=== PATIENT | male | born 1975 | race Two or more races ===

== ENCOUNTER 2022-01-03 11:24 | Emergency (ER) | payer OTHER ==
[~2022-01-03] VITALS: Ht 188 cm; Wt 81.6 kg
--- NOTE | 2022-01-03 11:35 | NUR ---
MARCOS [id number] From "[facility] Abdominal pain/Alcohol abuse". PLACED ON BED, AAOX4, IN PAIN 03/22.
--- NOTE | 2022-01-03 11:39 | NUR ---
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
[2022-01-03 11:47] LABS: BASOPHILS % (AUTO) 0.5 % (0.0-2.0); EOSINOPHILS % (AUTO) 0.9 % (0.0-6.0); HEMATOCRIT 40 % (39-51); HEMOGLOBIN 13.4 g/dL (13.5-17.5); LYMPHOCYTES # (AUTO) 1.6 K/uL (0.8-4.8); LYMPHOCYTES % (AUTO) 31.1 % (20.0-44.0); MEAN CORPUSCULAR HGB CONC 34 g/dl (31.0-36.0); MEAN CORPUSCULAR VOLUME 95 fL (80-96); MONOCYTES # (AUTO) 0.8 K/uL (0.1-1.30); MONOCYTES % (AUTO) 14.8 % (2.0-12.0); NEUTROPHILS # (AUTO) 2.7 K/uL (1.8-8.9); NEUTROPHILS % (AUTO) 52.7 % (43.0-81.0); PLATELET COUNT (AUTO) 196 K/uL (150-450); WHITE BLOOD COUNT (AUTO) 5.1 K/uL (4.3-11.0)
[2022-01-03 11:55] LABS: CALCIUM, SERUM 7.9 mg/dL (8.5-10.1); CREATININE 0.7 mg/dL (0.6-1.3); POTASSIUM 3.5 mmol/L (3.5-5.1)
[2022-01-03 12:01] LABS: ALBUMIN 3.5 g/dL (3.4-5.0); BILIRUBIN,DIRECT 0.1 mg/dL (0.0-0.2); BILIRUBIN,TOTAL 0.2 mg/dL (0.2-1.0); TOTAL PROTEIN, SERUM 7.1 g/dL (6.4-8.2)
--- NOTE | 2022-01-03 12:28 | NUR ---
SWAB FOR COVID19 SENT TO LAB
--- NOTE | 2022-01-03 13:28 | NUR ---
covid positive result relayed by labor economist, made aware
--- NOTE | 2022-01-03 13:35 | NUR ---
Patient discharged to home in stable condition. Written and verbal after care instructions given. Patient verbalizes understanding of instruction.
[2022-01-03 13:36] VITALS: BP 125/70
== END 2022-01-03 13:34 | disposition home or self-care (01) ==
LOC: ER 11:26
DX: F10.129 Alcohol abuse with intoxication, unspecified (principal); U07.1 COVID-19; R10.9 Unspecified abdominal pain; Z59.01 Sheltered homelessness
CPT/HCPCS: 99283; 87426; 85025; 80048; 83690; 80076; 36415; C9803

== ENCOUNTER 2022-01-12 23:01 | Emergency (ER) | payer OTHER ==
[~2022-01-12] VITALS: Ht 177.8 cm; Wt 77.1 kg
--- NOTE | 2022-01-12 23:26 | NUR ---
URINE COLLECTED AND SENT TO LAB
--- NOTE | 2022-01-12 23:34 | NUR ---
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
--- NOTE | 2022-01-12 23:39 | NUR ---
COVID SWAB COLLECTED AND SENT TO LAB
[2022-01-12 23:43] LABS: BASOPHILS % (AUTO) 0.3 % (0.0-2.0); EOSINOPHILS % (AUTO) 3.4 % (0.0-6.0); HEMATOCRIT 41 % (39-51); HEMOGLOBIN 13.5 g/dL (13.5-17.5); LYMPHOCYTES # (AUTO) 1.6 K/uL (0.8-4.8); LYMPHOCYTES % (AUTO) 44.6 % (20.0-44.0); MEAN CORPUSCULAR HGB CONC 33 g/dl (31.0-36.0); MEAN CORPUSCULAR VOLUME 95 fL (80-96); MONOCYTES # (AUTO) 0.3 K/uL (0.1-1.30); MONOCYTES % (AUTO) 8.6 % (2.0-12.0); NEUTROPHILS # (AUTO) 1.6 K/uL (1.8-8.9); NEUTROPHILS % (AUTO) 43.1 % (43.0-81.0); PLATELET COUNT (AUTO) 210 K/uL (150-450); RED BLOOD CELL COUNT(AUTO) 4.32 MIL/uL (4.5-6.0); WHITE BLOOD COUNT (AUTO) 3.7 K/uL (4.3-11.0)
[2022-01-12 23:46] LABS: BILIRUBIN,URINE NEGATIVE (NEGATIVE); COLOR,URINE YELLOW (YELLOW); LEUKOCYTE ESTERASE ,URINE NEGATIVE (NEGATIVE); NITRITE, URINE NEGATIVE (NEGATIVE); PH,URINE 5.5 (5.0-8.0); PROTEIN,URINE TRACE mg/dl (NEGATIVE); UGLUCOSE >=1000 mg/dL (NEGATIVE); UROBILINOGEN,URINE 0.2 EU/dL (0.2)
[2022-01-13] VITALS: BP 111/69
[2022-01-13 00:05] LABS: CALCIUM, SERUM 8.3 mg/dL (8.5-10.1); POTASSIUM 3.2 mmol/L (3.5-5.1)
[2022-01-13 00:07] LABS: BACTERIA,URINE Many /HPF (None Seen); SQUAMOUS EPITHELIAL CELL,UR Rare /HPF (None Seen); WBC,URINE 0-2 /HPF (0-3)
[2022-01-13 00:08] LABS: URIC ACID CRYSTALS,URINE Many /HPF (None Seen); URINE AMORPHOUS URATE Many /HPF (None Seen)
[2022-01-13 00:12] LABS: ALBUMIN 3.6 g/dL (3.4-5.0); BILIRUBIN,DIRECT 0.1 mg/dL (0.0-0.2); BILIRUBIN,TOTAL 0.3 mg/dL (0.2-1.0); TOTAL PROTEIN, SERUM 7.2 g/dL (6.4-8.2)
--- NOTE | 2022-01-13 06:50 | NUR ---
PT ELOPED FROM ER. DR UGARTE NOTIFIED. SITTER ATTEMPTED TO STOP PATIENT BUT PATIENT RAN AND EXITED THROUGH FIRE EXIT.
== END 2022-01-13 06:55 | disposition left against medical advice (07) ==
LOC: ER 23:04
DX: T40.2X1A Poisoning by other opioids, accidental (unintentional), initial encounter (principal); T51.0X1A Toxic effect of ethanol, accidental (unintentional), initial encounter; F19.10 Other psychoactive substance abuse, uncomplicated; Y92.89 Other specified places as the place of occurrence of the external cause; R94.31 Abnormal electrocardiogram [ECG] [EKG]; Z53.20 Procedure and treatment not carried out because of patient's decision for unspecified reasons; Z20.822 Contact with and (suspected) exposure to COVID-19; I10 Essential (primary) hypertension
CPT/HCPCS: 99284; 93005; 85025; 80048; 87086; 80076; 81001; 36415; 87426; 80143; 80320; 80307; C9803; G0480

== ENCOUNTER 2023-05-01 07:35 | Emergency (ER) | payer OTHER ==
[~2023-05-01] VITALS: Ht 188 cm; Wt 90.7 kg
[2023-05-01] MEDS ORDERED: ONDANSETRON HCL/PF 4 MG/2 ML VIAL ONE (08:25)
[2023-05-01] MEDS ORDERED: MORPHINE SULFATE INJ 4 MG/ML DISP.SYRIN ONE (08:25)
[2023-05-01 08:26] LABS: BASOPHILS % (AUTO) 0.7 % (0.0-2.0); EOSINOPHILS # (AUTO) 0.1 K/uL (0.0-0.7); HEMATOCRIT 38 % (39-51); HEMOGLOBIN 12.5 g/dL (13.5-17.5); LYMPHOCYTES # (AUTO) 0.7 K/uL (0.8-4.8); LYMPHOCYTES % (AUTO) 23.4 % (20.0-44.0); MEAN CORPUSCULAR HEMOGLOBIN 31 PG (26.0-33.0); MEAN CORPUSCULAR HGB CONC 33 g/dl (31.0-36.0); MEAN CORPUSCULAR VOLUME 93 fL (80-96); MONOCYTES # (AUTO) 0.3 K/uL (0.1-1.30); MONOCYTES % (AUTO) 10.9 % (2.0-12.0); NEUTROPHILS # (AUTO) 1.7 K/uL (1.8-8.9); PLATELET COUNT (AUTO) 197 K/uL (150-450); RED BLOOD CELL COUNT(AUTO) 4.08 MIL/uL (4.5-6.0); RED CELL DISTRIBUTION WIDTH 14.2 % (11.5-15.0); WHITE BLOOD COUNT (AUTO) 2.8 K/uL (4.3-11.0)
[2023-05-01] MEDS ORDERED: IOHEXOL-300 100 ML VIAL IV ONE ×2 (08:26→09:03)
[2023-05-01] MEDS ORDERED: CT SWABBABLE VALVE TRANS SET 1 EA INFUS.SET MC ONE (08:27)
[2023-05-01] MEDS ORDERED: IV NS 0.9% 250 ML IV ONE ×2 (08:27→09:03)
[2023-05-01] MEDS: IV NS 0.9% 1,000 ML BAG IV ONE (08:35)
[2023-05-01] MEDS: MORPHINE SULFATE INJ 2 MG/ML DISP.SYRIN IV ONE (08:36)
[2023-05-01] MEDS: ONDANSETRON HCL/PF 4 MG/2 ML VIAL IVP ONE (08:36)
[2023-05-01 08:37] LABS: INR 0.97 (0.91-1.10); PARTIAL THROMBOPLASTIN TIME 28.1 SEC (24.3-34.3); PROTHROMBIN TIME 10.3 SECS (9.2-11.1)
[2023-05-01 08:44] LABS: CALCIUM, SERUM 8.3 mg/dL (8.5-10.1); CREATININE 0.8 mg/dL (0.6-1.3); POTASSIUM 3.9 mmol/L (3.5-5.1)
[2023-05-01 08:49] LABS: ALBUMIN 3.4 g/dL (3.4-5.0); BILIRUBIN,DIRECT 0.1 mg/dL (0.0-0.2); BILIRUBIN,TOTAL 0.3 mg/dL (0.2-1.0); TOTAL PROTEIN, SERUM 6.4 g/dL (6.4-8.2)
[2023-05-01 08:52] LABS: LACTIC ACID 0.6 mmol/L (0.4-2.0)
[2023-05-01] MEDS ORDERED: CYCL5TAB PO (10:18)
[2023-05-01 10:43] VITALS: BP 110/70; TEMP 97.9; O2SAT 97
== END 2023-05-01 10:46 | disposition home or self-care (01) ==
LOC: ER 07:41
DX: K59.00 Constipation, unspecified (principal); R10.32 Left lower quadrant pain; I10 Essential (primary) hypertension; Z90.89 Acquired absence of other organs; Z59.01 Sheltered homelessness
CPT/HCPCS: 99285; 74177; 96374; 96361; 85025; 80048; 83605; 83690; 80076; 36415; 85730; J2405; J7030; J7050 ×2; Q9967 ×2; J2270

== ENCOUNTER 2023-06-21 17:05 | Emergency (ER) | payer OTHER ==
[~2023-06-21] VITALS: Ht 188 cm; Wt 95.3 kg
[~2023-06-21 17:05] MED LIST: CYCL5TAB PO
[2023-06-21 17:24] VITALS: BP 123/66; TEMP 97.9
[2023-06-21] MEDS ORDERED: ESZO3TAB27 PO (18:19)
[2023-06-21 19:22] VITALS: O2SAT 96
== END 2023-06-21 19:23 | disposition home or self-care (01) ==
LOC: ER 17:06
DX: Z76.0 Encounter for issue of repeat prescription (principal); G47.00 Insomnia, unspecified; I10 Essential (primary) hypertension; F32.A Depression, unspecified; F41.9 Anxiety disorder, unspecified; Z90.89 Acquired absence of other organs

== ENCOUNTER 2024-08-26 15:02 | Emergency (ER) | payer OTHER ==
[~2024-08-26] VITALS: Ht 182.9 cm; Wt 90.7 kg
[~2024-08-26 15:02] MED LIST changes: +ESZO3TAB27 PO
[2024-08-26 16:45] LABS: BASOPHILS % (AUTO) 0.4 % (0.0-2.0); EOSINOPHILS # (AUTO) 0.1 K/uL (0.0-0.7); HEMATOCRIT 39 % (39-51); HEMOGLOBIN 13.2 g/dL (13.5-17.5); LYMPHOCYTES # (AUTO) 1.1 K/uL (0.8-4.8); LYMPHOCYTES % (AUTO) 35.1 % (20.0-44.0); MEAN CORPUSCULAR HEMOGLOBIN 32 PG (26.0-33.0); MEAN CORPUSCULAR HGB CONC 34 g/dl (31.0-36.0); MEAN CORPUSCULAR VOLUME 94 fL (80-96); MONOCYTES # (AUTO) 0.2 K/uL (0.1-1.30); MONOCYTES % (AUTO) 7.5 % (2.0-12.0); NEUTROPHILS # (AUTO) 1.7 K/uL (1.8-8.9); PLATELET COUNT (AUTO) 149 K/uL (150-450); RED BLOOD CELL COUNT(AUTO) 4.14 MIL/uL (4.5-6.0); RED CELL DISTRIBUTION WIDTH 14.5 % (11.5-15.0); WHITE BLOOD COUNT (AUTO) 3.1 K/uL (4.3-11.0)
[2024-08-26 16:56] LABS: CALCIUM, SERUM 7.8 mg/dL (8.5-10.1); CARBON DIOXIDE 28 mmol/L (21-32); CHLORIDE 111 mmol/L (98-107); CREATININE 0.7 mg/dL (0.6-1.3); GLUCOSE 107 mg/dL (74-106); POTASSIUM 3.9 mmol/L (3.5-5.1); SODIUM SERUM 146 mmol/L (136-145); UREA NITROGEN, BLOOD 13 mg/dL (7-18)
[2024-08-26 17:04] LABS: ALANINE AMINOTRANSFERASE 34 U/L (12-78); ALBUMIN 3.4 g/dL (3.4-5.0); ALKALINE PHOSPHATASE 80 U/L (46-116); ASPARTATE AMINOTRANSFERASE 40 U/L (15-37); BILIRUBIN,DIRECT 0.1 mg/dL (0.0-0.2); BILIRUBIN,TOTAL 0.2 mg/dL (0.2-1.0); TOTAL PROTEIN, SERUM 6.5 g/dL (6.4-8.2)
[2024-08-26 17:17] LABS: ALCOHOL, BLOOD 463 mg/dL (0-10)
[2024-08-26 17:19] LABS: ACETAMINOPHEN <10 ug/ml (10-30); SALICYLATE 1.3 mg/dL (2.8-20.0)
[2024-08-27 00:36] VITALS: BP 128/85; TEMP 98; O2SAT 96
== END 2024-08-27 00:36 | disposition home or self-care (01) ==
LOC: ER 15:07
DX: F10.129 Alcohol abuse with intoxication, unspecified (principal); I10 Essential (primary) hypertension; Z90.49 Acquired absence of other specified parts of digestive tract; Y90.8 Blood alcohol level of 240 mg/100 ml or more; Z20.822 Contact with and (suspected) exposure to COVID-19
CPT/HCPCS: 36415; 80048-TC; 80076-TC; 85025-TC; G0480

== ENCOUNTER 2025-03-19 08:45 | Emergency (ER) | payer MEDICAID ==
[~2025-03-19] VITALS: Ht 182.9 cm; Wt 113.4 kg
[2025-03-19 09:08] VITALS: TEMP 98.1
[2025-03-19] MEDS ORDERED: ACETAMINOPHEN ES 500 MG TABLET ONE (09:32)
[2025-03-19] MEDS ORDERED: FOLIC ACID 1 MG TABLET ONE (09:33)
[2025-03-19] MEDS ORDERED: THIAMINE HCL 100 MG TABLET ONE (09:33)
[2025-03-19] MEDS: FOLIC ACID 1 MG TABLET PO ONE (09:35)
[2025-03-19] MEDS: THIAMINE HCL 100 MG TABLET PO ONE (09:35)
[2025-03-19] MEDS: ACETAMINOPHEN ES 500 MG TABLET PO ONE (09:35)
[2025-03-19 16:10] VITALS: BP 129/84; O2SAT 99
== END 2025-03-19 11:02 | disposition home or self-care (01) ==
LOC: ER 08:48
DX: F10.129 Alcohol abuse with intoxication, unspecified (principal); I10 Essential (primary) hypertension; S09.90XA Unspecified injury of head, initial encounter; Z59.00 Homelessness unspecified; Z90.49 Acquired absence of other specified parts of digestive tract; W01.10XA Fall on same level from slipping, tripping and stumbling with subsequent striking against unspecified object, initial encounter; Y93.89 Activity, other specified; Y92.89 Other specified places as the place of occurrence of the external cause; Y99.9 Unspecified external cause status; Y90.9 Presence of alcohol in blood, level not specified
CPT/HCPCS: 70450-TC

== ENCOUNTER 2025-06-08 01:02 | Emergency (ER) | payer MEDICAID ==
[~2025-06-08] VITALS: Ht 188 cm; Wt 102.5 kg
[2025-06-08] MEDS ORDERED: CHLO25CA22 PO (02:52)
[2025-06-08 03:56] VITALS: BP 136/82; TEMP 98.5; O2SAT 95
== END 2025-06-08 03:57 | disposition home or self-care (01) ==
LOC: ER 01:05
DX: F10.239 Alcohol dependence with withdrawal, unspecified (principal); F41.9 Anxiety disorder, unspecified; I10 Essential (primary) hypertension; Z90.49 Acquired absence of other specified parts of digestive tract; Z60.2 Problems related to living alone; Y90.9 Presence of alcohol in blood, level not specified